=== PATIENT | female | born 1950 | race American Indian/Alaskan Native ===

== ENCOUNTER 2018-07-12 20:00 | Emergency (ER) | payer SELFPAY ==
[2018-07-12 21:36] LABS: Absolute Lymphocytes (CBC) 2.6 K/uL (0.7-4.9); Absolute Monocytes 0.5 K/uL (0.1-1.3); Absolute Neutrophil 3.6 K/uL (1.8-8.0); Basophils % 0.7 % (0-1.3); Eosinophils % 8.8 % (0-4.4); Hematocrit 37.1 % (36.0-45.0); Lymphocytes % 34.7 % (15.3-44.8); MCH 29.9 pg (27.0-35.0); MCV 87.9 fL (80-100); MPV 6.3 fL (7.6-11.3); Monocytes % 7.2 % (3.3-12.3); RBC Red Blood Cell Count 4.22 M/uL (3.86-4.86)
[2018-07-12 21:43] LABS: Protime INR 1.08
[2018-07-12 21:57] LABS: ALT/SGPT 17 U/L (12-78); AST/SGOT 15 U/L (15-37); Albumin 3.9 g/dL (3.4-5.0); Alkaline Phosphatase 115 U/L (45-117); BUN Blood Urea Nitrogen 9 mg/dL (7-18); Bicarbonate 27 mmol/L (21-32); Bilirubin Direct < 0.1 mg/dL (0-0.2); Bilirubin Total 0.3 mg/dL (0.2-1.0); Glucose Level 140 mg/dL (74-106); Magnesium 2.3 mg/dL (1.8-2.4); NT PRO-BNP 115 pg/mL (<125); Potassium 3.7 mmol/L (3.5-5.1); Protein, Total 8.3 g/dL (6.4-8.2); Sodium Level 134 mmol/L (136-145); Troponin (Emerg Dept Use Only) < 0.02 ng/mL (0.0-0.045)
[2018-07-12 22:37] LABS: Urine Appearance CLEAR; Urine Bilirubin NEGATIVE (NEG); Urine Blood NEGATIVE (NEG); Urine Color YELLOW; Urine Glucose NEGATIVE (NEG); Urine Protein NEGATIVE (NEG); Urine Specific Gravity <=1.005 (1.005-1.030); Urine Urobilinogen 0.2 mg/dL (0.2-1.0)
[2018-07-12 22:37] LABS: Urine Blood TRACE (NEG); Urine Glucose NEGATIVE (NEG); Urine Protein NEGATIVE (NEG); Urine Specific Gravity 1.005 (1.005-1.030)
[2018-07-12 22:44] LABS: Urine Microscopic Reflex NO UMIC
--- NOTE | 2018-07-12 23:19 | ER ---
Nurse's Notes [facility] Name: Jannet Driscoll Age: 68 yrs Sex: Female : 1950 Arrival Date: 07/12/2018 Time: 20:03 Bed 20 Private MD: Diagnosis: Weakness Presentation: 07/12 20:09 Presenting complaint: Patient states: headache X2 week, insomnia X2 week. pt took ak1 tylenol PM yesterday and developed blisters in her mouth. Transition of care: patient was not received from another setting of care. No acute neurological deficit is noted. Care prior to arrival: None. 20:09 Method Of Arrival: Wheelchair ak1 20:09 Acuity: ESME 3 ak1 23:33 Onset of symptoms was July 12, 2018. Risk Assessment: Do you want to hurt yourself lp1 or someone else? Patient reports no desire to harm self or others. Initial Sepsis Screen: Does the patient meet any 2 criteria? No. Patient's initial sepsis screen is negative. Does the patient have a suspected source of infection? No. Patient's initial sepsis screen is negative. Historical: - Allergies: 20:13 Tylenol; ak1 - Home Meds: 20:13 amlodipine besylate (bulk) 5mg and 50mg atenolol miscellaneous [Active]; glyciphage ak1 500mg [Active]; lorazepam 1 mg Oral tab [Active]; - PMHx: 20:13 Diabetes - NIDDM; Hypertension; ak1 - PSHx: 20:13 Hysterectomy; ak1 - Immunization history:: Adult Immunizations up to date. - Social history:: Smoking status: Patient/guardian denies using tobacco. - Ebola Screening: : Patient reports travel to an Ebola-affected area in the 21 days before illness onset. Patient reports to have traveled to [place]. Screenin:28 Abuse screen: Denies threats or abuse. Denies injuries from another. Nutritional lp1 screening: No deficits noted. Tuberculosis screening: No symptoms or risk factors identified. Fall Risk Total Mcdermott Fall Scale indicates High Risk Score (45 or more points). Fall prevention measures have been instituted. Side Rails Up X 2 As available patient and family educated on Fall Prevention Program and Strategies. Assessment: 21:03 General: Appears ill, Behavior is quiet. Pain: Complains of pain in head. Neuro: Level lp1 of Consciousness is awake, alert, obeys commands, Oriented to person, place, situation, Pupils are PERRLA, Reports headache weakness generalized. Cardiovascular: Patient's skin is warm and dry. Respiratory: Respiratory effort is even, unlabored, Breath sounds are clear bilaterally. GI: Abdomen is non-distended. : No deficits noted. EENT: Reports blisters in mouth after taking Tylenol PM. Derm: Skin is intact, Skin is dry, Skin is normal. Musculoskeletal: Circulation, motion, and sensation intact. 22:18 Reassessment: Patient assisted to bathroom. lp1 23:34 Reassessment: Patient is alert, oriented x 3, equal unlabored respirations, skin lp1 warm/dry/pink. Patient's family states she may not be sleeping due to stress of family drama and being home sick, patient states she wants to be back in [facility]. Vital Signs: 20:10 BP 170 / 65; Pulse 63; Resp 16; Temp 97.7(TE); Pulse Ox 99% on R/A; Weight 65.77 kg ak1 (R); Height 5 ft. 4 in. (162.56 cm) (R); Pain 5/10; 21:05 BP 151 / 71; Pulse 72; Resp 19; Pulse Ox 100% on R/A; lp1 22:30 BP 124 / 60; Pulse 63; Resp 13; Pulse Ox 99% on R/A; lp1 23:31 BP 120 / 61; Pulse 67; Resp 14; Temp 98.3(O); Pulse Ox 99% on R/A; lp1 20:10 Body Mass Index 24.89 (65.77 kg, 162.56 cm) ak1 ED Course: 20:03 Patient arrived in ED. al2 20:10 Triage completed. ak1 20:13 Arm band placed on Patient placed in an exam room, on a stretcher, Patient notified of ak1 wait time. 20:30 Patient has correct armband on for positive identification. Placed in gown. Bed in low lp1 position. Call light in reach. Side rails up X2. youth nutritional monitor on. Pulse ox on. NIBP on. 20:58 So Yo RN is Primary Nurse. lp1 21:05 Ever Grover MD is Attending Physician. tw4 21:28 Inserted saline lock: 20 gauge in left antecubital area, using aseptic technique. Blood ds4 collected. Missed attempt(s): 20 gauge in right antecubital area. Bleeding controlled, band aid applied, catheter tip intact. 21:29 Basic Metabolic Panel Sent. ds4 21:29 CBC with Diff Sent. ds4 21:30 LFT's Sent. ds4 21:30 Magnesium Sent. ds4 21:30 NT PRO-BNP Sent. ds4 21:30 PT-INR Sent. ds4 21:30 Troponin (emerg Dept Use Only) Sent. ds4 22:26 Urinalysis Sent. ds4 23:33 No provider procedures requiring assistance completed. IV discontinued, No lp1 redness/swelling at site. Pressure dressing applied. Administered Medications: No medications were administered Point of Care Testing: Blood Glucose: 21:27 Blood Glucose: 128 mg/dL; lp1 Ranges: Outcome: 23:18 Discharge ordered by MD. tw4 23:34 Discharged to home via wheelchair, with family. lp1 23:34 Condition: good 23:34 Discharge instructions given to patient, family, Instructed on discharge instructions, follow up and referral plans. medication usage, Demonstrated understanding of instructions, follow-up care, medications, Prescriptions given X 1. 23:44 Patient left the ED. lp1 Signatures: So Yo RN RN lp1 Panda Clark ds4 Cande Guerra, RN RN ak1 Namita Sena Terrence, MD MD tw4 Corrections: (The following items were deleted from the chart) 07/13 00:39 10 23:31 BP 120 / 61; Pulse 67bpm; Resp 14bpm; Pulse Ox 99% RA; lp1 lp1
--- NOTE | 2018-07-12 23:19 | EDPHYS ---
Physician Documentation [facility] Name: Jannet Driscoll Age: 68 yrs Sex: Female : 1950 Arrival Date: 07/12/2018 Time: 20:03 Bed 20 Private MD: ED Physician Ever Grover Historical: - Allergies: 07/12 20:13 Tylenol; ak1 - Home Meds: 20:13 amlodipine besylate (bulk) 5mg and 50mg atenolol miscellaneous [Active]; glyciphage ak1 500mg [Active]; lorazepam 1 mg Oral tab [Active]; - PMHx: 20:13 Diabetes - NIDDM; Hypertension; ak1 - PSHx: 20:13 Hysterectomy; ak1 - Immunization history:: Adult Immunizations up to date. - Social history:: Smoking status: Patient/guardian denies using tobacco. - Ebola Screening: : Patient reports travel to an Ebola-affected area in the 21 days before illness onset. Patient reports to have traveled to [facility]. Vital Signs: 20:10 BP 170 / 65; Pulse 63; Resp 16; Temp 97.7(TE); Pulse Ox 99% on R/A; Weight 65.77 kg ak1 (R); Height 5 ft. 4 in. (162.56 cm) (R); Pain 5/10; 21:05 BP 151 / 71; Pulse 72; Resp 19; Pulse Ox 100% on R/A; lp1 22:30 BP 124 / 60; Pulse 63; Resp 13; Pulse Ox 99% on R/A; lp1 23:31 BP 120 / 61; Pulse 67; Resp 14; Temp 98.3(O); Pulse Ox 99% on R/A; lp1 20:10 Body Mass Index 24.89 (65.77 kg, 162.56 cm) ak1 MDM: 21:05 Patient medically screened. tw4 07/12 21:05 Order name: Basic Metabolic Panel; Complete Time: 22:42 tw4 07/12 22:43 Interpretation: Normal except: NA 134; GFR 83; GLUC 140. tw4 07/12 21:05 Order name: CBC with Diff; Complete Time: 22:42 tw4 07/12 22:43 Interpretation: Normal except: PLT 426; EOSINOPHIL % 8.8; MPV 6.3. tw4 07/12 21:05 Order name: LFT's; Complete Time: 22:42 4 07/12 22:43 Interpretation: Normal except: TP 8.3; GLOB 4.4; A/G 0.9. tw4 07/12 21:05 Order name: Magnesium; Complete Time: 22:42 tw4 07/12 22:43 Interpretation: Within normal limits: MG 2.3. tw4 07/12 21:05 Order name: NT PRO-BNP; Complete Time: 22:42 tw4 07/12 22:43 Interpretation: Within normal limits: NT PRO-BNP 115. tw4 07/12 21:05 Order name: PT-INR; Complete Time: 22:42 tw4 07/12 22:43 Interpretation: Normal except: PT 12.7. tw4 07/12 21:05 Order name: Troponin (emerg Dept Use Only); Complete Time: 22:42 4 07/12 22:43 Interpretation: Within normal limits: TROPED < 0.02. 4 07/12 21:05 Order name: EKG; Complete Time: 21:06 4 07/12 21:05 Order name: Cardiac monitoring; Complete Time: 21:10 4 07/12 21:05 Order name: EKG - Nurse/Tech; Complete Time: 21:07 4 07/12 21:05 Order name: IV Saline Lock; Complete Time: 21:10 tw4 07/12 21:05 Order name: Labs collected and sent; Complete Time: 21:10 4 07/12 21:05 Order name: Urinalysis; Complete Time: 22:48 4 07/12 22:28 Order name: Urine Dipstick--Ancillary (enter results); Complete Time: 22:42 4 07/12 21:05 Order name: O2 Per Protocol; Complete Time: 21:10 4 07/12 21:05 Order name: O2 Sat Monitoring; Complete Time: 21:10 4 07/12 21:05 Order name: Urine Dipstick-Ancillary (obtain specimen); Complete Time: 22:26 tw4 Administered Medications: No medications were administered Point of Care Testing: Blood Glucose: 21:27 Blood Glucose: 128 mg/dL; lp1 Ranges: Critical Glucose Levels:Adult <50 mg/dl or >400 mg/dl <40 mg/dl or >180 mg/dl Disposition: 07/12/18 23:18 Discharged to Home. Impression: Weakness. - Condition is Stable. - Discharge Instructions: Weakness, Fatigue. - Prescriptions for Lunesta 1 mg Oral tablet - take 2 tablet by ORAL route once daily; 10 tablet. - Medication Reconciliation Form, Thank You Letter, Antibiotic Education, Prescription Opioid Use form. - Follow up: Private Physician; When: Upon discharge from the Emergency Department; Reason: Further diagnostic work-up, Recheck today's complaints, Continuance of care. - Problem is new. - Symptoms have improved. Addendum: 08/07/2018 06:50 Addendum: Pt is a 68 year old female that complains of 2 week history headache and t w4 insomia. Pt states that she has been taking Ativan but has had no relief. This was prescribed by her doctor. Pt states that today she developed blisters in her mouth. Pt denies CP, SOB, N/V/D. Addendum: Review of systems: Constitutional: negative for fever, chill, malaise positive for insomnia HEENT: negative for sore throat, vision changes Resp:negative for SOB, wheezing cough CV; negative for CP, DOMINIK, palpitations Abdomen: negative for abdominal pain, nausea vomiting Ext: negative for edema, injury Neuro: positive for headache,negative for numbness weakness. Addendum: Physical exam: Gen: well developed well nourished female in NAD HEENT: PERRLA, EOMI, neck supple Resp: CTAB , nl BS CV: RRR, nl S1 S2 no murmurs or gallops Abdomen: soft ND/NT nl BS Ext: nontender,no edema Neuro: alert oriented times three CN grossly intact strength intact throughout 02/11. Addendum: ED course: pt rested comfortably on the stretcher in the ED. Had no additional complaints. evaluation in Ed negative for cause of patients symptoms. Pt prescribed Lunesta and told ot followup with PMD. Signatures: Dispatcher [employer] EDMS So Yo, RN RN lp1 Cande Guerra RN RN ak1 Ever Grover MD MD tw4 Corrections: (The following items were deleted from the chart) 07/12 23:44 23:18 07/12/2018 23:18 Discharged to Home. Impression: Weakness. Condition is Stable. lp1 Forms are Medication Reconciliation Form, Thank You Letter, Antibiotic Education, Prescription Opioid Use. Follow up: Private Physician; When: Upon discharge from the Emergency Department; Reason: Further diagnostic work-up, Recheck today's complaints, Continuance of care. Problem is new. Symptoms have improved. tw4
--- NOTE | 2018-07-13 16:49 | EKG ---
Test Date: 2018-07-12 Test Time: 20:27:27 Engineering Mathematician: [place] MEASUREMENT RESULTS: Intervals: Rate: 64 MS: 194 QRSD: 76 QT: 482 QTc: 497 [place]: P: 74 MS: 194 QRS: -26 T: 13 INTERPRETIVE STATEMENTS: Normal sinus rhythm Prolonged QT Abnormal ECG No previous ECG available for comparison Electronically Signed On 07-13-18 16:44:51 CDT by Timi Bailey
== END 2018-07-12 23:44 | disposition home or self-care (01) ==
LOC: ER 20:00
DX: R53.1 Weakness (principal); I10 Essential (primary) hypertension; E11.9 Type 2 diabetes mellitus without complications; Z88.6 Allergy status to analgesic agent
CPT/HCPCS: 36415; 80048; 80076; 81003; 82962; 83735; 83880; 84484; 85025; 85610; 93005; 99284

== ENCOUNTER 2018-07-18 03:17 | Emergency (ER) | payer SELFPAY ==
[2018-07-18 04:44] LABS: Protime INR 1.1
[2018-07-18 04:45] LABS: Absolute Lymphocytes (CBC) 2.7 K/uL (0.7-4.9); Absolute Monocytes 0.6 K/uL (0.1-1.3); Absolute Neutrophil 3.7 K/uL (1.8-8.0); Basophils % 0.8 % (0-1.3); Eosinophils % 9.1 % (0-4.4); Hematocrit 35.5 % (36.0-45.0); Lymphocytes % 34.7 % (15.3-44.8); MCH 30.4 pg (27.0-35.0); MCV 86.8 fL (80-100); MPV 6.8 fL (7.6-11.3); Monocytes % 8.1 % (3.3-12.3); RBC Red Blood Cell Count 4.09 M/uL (3.86-4.86)
[2018-07-18 04:58] LABS: ALT/SGPT 18 U/L (12-78); AST/SGOT 15 U/L (15-37); Albumin 3.7 g/dL (3.4-5.0); Alkaline Phosphatase 110 U/L (45-117); BUN Blood Urea Nitrogen 5 mg/dL (7-18); Bicarbonate 24 mmol/L (21-32); Bilirubin Direct 0.1 mg/dL (0-0.2); Bilirubin Total 0.3 mg/dL (0.2-1.0); Glucose Level 150 mg/dL (74-106); NT PRO-BNP 79 pg/mL (<125); Potassium 3.6 mmol/L (3.5-5.1); Protein, Total 7.9 g/dL (6.4-8.2); Sodium Level 132 mmol/L (136-145); Troponin (Emerg Dept Use Only) < 0.02 ng/mL (0.0-0.045)
--- NOTE | 2018-07-18 06:24 | ER ---
Nurse's Notes [facility] Name: Jannet Driscoll Age: 68 yrs Sex: Female : 1950 Arrival Date: 07/18/2018 Time: 03:18 Bed 7 Private MD: Diagnosis: Acute headache. Insomnia. Anxiety disorder Presentation: 07/18 03:32 Presenting complaint: grandson states pt was seen in the ED 07/12 for anxiety she had bb recently stopped her prescription medication lorazepam which she had been taking for 10 years pt was unable to sleep and was given a prescription for Lunesta. Pt here tonight because she has not been able to sleep for several days and was stating "I am going to ". Transition of care: patient was not received from another setting of care. Onset of symptoms was July 18, 2018. Risk Assessment: Do you want to hurt yourself or someone else? Patient reports no desire to harm self or others. Initial Sepsis Screen: Does the patient meet any 2 criteria? No. Patient's initial sepsis screen is negative. Does the patient have a suspected source of infection? No. Patient's initial sepsis screen is negative. Care prior to arrival: None. 03:32 Method Of Arrival: Wheelchair bb 03:32 Acuity: ESME 3 bb Historical: - Allergies: 03:36 Tylenol; bb - Home Meds: 03:36 amlodipine besylate (bulk) 5mg and 50mg atenolol miscellaneous [Active]; glyciphage bb 500mg [Active]; lorazepam 1 mg Oral tab [Active]; - PMHx: 03:36 Diabetes - NIDDM; Hypertension; bb - PSHx: 03:36 Hysterectomy; bb - Immunization history:: Adult Immunizations up to date. - Social history:: Smoking status: Patient/guardian denies using tobacco, Patient/guardian denies using alcohol, street drugs. - Ebola Screening: : No symptoms or risks identified at this time. Screenin:45 Abuse screen: Denies threats or abuse. Denies injuries from another. Nutritional aa1 screening: No deficits noted. Tuberculosis screening: No symptoms or risk factors identified. Fall Risk None identified. Assessment: 03:45 General: Appears in no apparent distress. comfortable, Behavior is calm, cooperative, aa1 appropriate for age. Pain: Denies pain. Neuro: Level of Consciousness is awake, alert, obeys commands, Oriented to person, place, time, situation, Moves all extremities. Speech is normal. Cardiovascular: Heart tones S1 S2 present Rhythm is regular. Respiratory: Airway is patent Respiratory effort is even, unlabored, Respiratory pattern is regular, symmetrical. GI: No signs and/or symptoms were reported involving the gastrointestinal system. : No signs and/or symptoms were reported regarding the genitourinary system. EENT: No signs and/or symptoms were reported regarding the EENT system. Derm: Skin is intact, is healthy with good turgor, Skin is pink, warm \\T\\ dry. Musculoskeletal: Circulation, motion, and sensation intact. Capillary refill < 3 seconds. 04:34 Reassessment: Patient appears in no apparent distress at this time. Patient and/or aa1 family updated on plan of care and expected duration. Pain level reassessed. Patient is alert, oriented x 3, equal unlabored respirations, skin warm/dry/pink. Awaiting test results. 05:37 Reassessment: Patient appears in no apparent distress at this time. Patient and/or aa1 family updated on plan of care and expected duration. Pain level reassessed. Patient is alert, oriented x 3, equal unlabored respirations, skin warm/dry/pink. Awaiting CT results. 06:31 Reassessment: Patient appears in no apparent distress at this time. Patient is alert, aa1 oriented x 3, equal unlabored respirations, skin warm/dry/pink. Discussed d/c \\T\\ f/u instructions with pt; denies questions or concerns at this time Patient denies pain at this time. Patient states feeling better. Vital Signs: 03:36 BP 135 / 70; Pulse 61; Resp 20 S; Temp 97.8(O); Pulse Ox 100% on R/A; Weight 65.77 kg bb (R); Height 5 ft. 4 in. (162.56 cm) (R); 04:34 BP 132 / 67; Pulse 57; Resp 18; Pulse Ox 100% on R/A; Pain 0/10; aa1 05:37 BP 125 / 67; Pulse 60; Resp 16; Pulse Ox 100% on R/A; Pain 0/10; aa1 06:31 BP 100 / 61; Pulse 62; Resp 16; Pulse Ox 100% on R/A; Pain 0/10; aa1 03:36 Body Mass Index 24.89 (65.77 kg, 162.56 cm) bb ED Course: 03:18 Patient arrived in ED. ds1 03:33 Jeffery Stevens MD is Attending Physician. pkl 03:35 Triage completed. bb 03:36 Arm band placed on Patient placed in an exam room, on a stretcher, on pulse oximetry. bb Family accompanied patient. 03:45 Patient has correct armband on for positive identification. Placed in gown. Bed in low aa1 position. Call light in reach. nuclear monitoring technician on. Pulse ox on. NIBP on. Warm blanket given. 04:11 Mariluz Rush, RN is Primary Nurse. aa1 04:30 Initial lab(s) drawn, by ED staff, sent to lab. Inserted saline lock: 20 gauge in left aa1 antecubital area, using aseptic technique. Blood collected. 04:32 Basic Metabolic Panel Sent. ds4 04:32 PT-INR Sent. ds4 04:32 CBC with Diff Sent. ds4 04:32 Troponin (emerg Dept Use Only) Sent. ds4 04:32 LFT's Sent. ds4 04:32 Magnesium Sent. ds4 04:32 NT PRO-BNP Sent. ds4 04:33 EKG done, by ED staff, reviewed by Jeffery Stevens MD. ds4 04:34 X-ray completed. Portable x-ray completed in exam room. Patient tolerated procedure kw well. 04:35 XRAY Chest (1 view) In Process Unspecified. EDMS 05:20 CT Head Brain wo Cont In Process Unspecified. EDMS 05:22 CT completed. Patient tolerated procedure well. Patient moved back from CT. kw1 06:31 No provider procedures requiring assistance completed. IV discontinued, intact, aa1 bleeding controlled, No redness/swelling at site. Pressure dressing applied. Administered Medications: No medications were administered Outcome: 06:24 Discharge ordered by . pkl 06:31 Discharged to home ambulatory, with family. aa1 06:31 Condition: good 06:31 Discharge instructions given to patient, family, Instructed on discharge instructions, follow up and referral plans. medication usage, Demonstrated understanding of instructions, follow-up care, medications, Prescriptions given X 2. 06:32 Patient left the ED. aa1 Signatures: Dispatcher [employer] Mariluz Narvaez RN RN aa1 Jeffery Stevens MD MD pkl [place], Demi ds1 Lupis Zepeda RN RN bb Katie Harp Donovan ds4 Marian Barrios kw1
--- NOTE | 2018-07-18 06:24 | EDPHYS ---
Physician Documentation [facility] Name: Jannet Driscoll Age: 68 yrs Sex: Female : 1950 Arrival Date: 07/18/2018 Time: 03:18 Bed 7 Private MD: ED Physician Jeffery Stevens HPI: 07/18 04:24 This 68 yrs old Other Female presents to ER via Wheelchair with complaints of Anxiety. pkl 04:24 The patient complains of pain to the top of head and forehead. Onset: The pkl symptoms/episode began/occurred 1 week(s) ago, and became worse today. Associated signs and symptoms: Pertinent positives: weakness, unable to sleep for a few days. Historical: - Allergies: 03:36 Tylenol; bb - Home Meds: 03:36 amlodipine besylate (bulk) 5mg and 50mg atenolol miscellaneous [Active]; glyciphage bb 500mg [Active]; lorazepam 1 mg Oral tab [Active]; - PMHx: 03:36 Diabetes - NIDDM; Hypertension; bb - PSHx: 03:36 Hysterectomy; bb - Immunization history:: Adult Immunizations up to date. - Social history:: Smoking status: Patient/guardian denies using tobacco, Patient/guardian denies using alcohol, street drugs. - Ebola Screening: : No symptoms or risks identified at this time. ROS: 04:24 Eyes: Negative for injury, pain, redness, and discharge, ENT: Negative for injury, pkl pain, and discharge, Neck: Negative for injury, pain, and swelling, Cardiovascular: Negative for chest pain, palpitations, and edema, Respiratory: Negative for shortness of breath, cough, wheezing, and pleuritic chest pain, Abdomen/GI: Negative for abdominal pain, nausea, vomiting, diarrhea, and constipation, Back: Negative for injury and pain, : Negative for injury, bleeding, discharge, and swelling, MS/Extremity: Negative for injury and deformity, Skin: Negative for injury, rash, and discoloration. 04:24 Neuro: Positive for headache, weakness. Exam: 04:27 Head/Face: Normocephalic, atraumatic. Eyes: Pupils equal round and reactive to light, pkl extra-ocular motions intact. Lids and lashes normal. Conjunctiva and sclera are non-icteric and not injected. Cornea within normal limits. Periorbital areas with no swelling, redness, or edema. ENT: Nares patent. No nasal discharge, no septal abnormalities noted. Tympanic membranes are normal and external auditory canals are clear. Oropharynx with no redness, swelling, or masses, exudates, or evidence of obstruction, uvula midline. Mucous membranes moist. Neck: Trachea midline, no thyromegaly or masses palpated, and no cervical lymphadenopathy. Supple, full range of motion without nuchal rigidity, or vertebral point tenderness. No Meningismus. Chest/axilla: Normal chest wall appearance and motion. Nontender with no deformity. No lesions are appreciated. Cardiovascular: Regular rate and rhythm with a normal S1 and S2. No gallops, murmurs, or rubs. Normal PMI, no JVD. No pulse deficits. Respiratory: Lungs have equal breath sounds bilaterally, clear to auscultation and percussion. No rales, rhonchi or wheezes noted. No increased work of breathing, no retractions or nasal flaring. Abdomen/GI: Soft, non-tender, with normal bowel sounds. No distension or tympany. No guarding or rebound. No evidence of tenderness throughout. Back: No spinal tenderness. No costovertebral tenderness. Full range of motion. Skin: Warm, dry with normal turgor. Normal color with no rashes, no lesions, and no evidence of cellulitis. MS/ Extremity: Pulses equal, no cyanosis. Neurovascular intact. Full, normal range of motion. 04:27 Neuro: Orientation: appropriate for stated age, Mentation: is normal, Cranial nerves: grossly normal, Motor: moves all fours, Gait: is unsteady. Vital Signs: 03:36 BP 135 / 70; Pulse 61; Resp 20 S; Temp 97.8(O); Pulse Ox 100% on R/A; Weight 65.77 kg bb (R); Height 5 ft. 4 in. (162.56 cm) (R); 04:34 BP 132 / 67; Pulse 57; Resp 18; Pulse Ox 100% on R/A; Pain 0/10; aa1 05:37 BP 125 / 67; Pulse 60; Resp 16; Pulse Ox 100% on R/A; Pain 0/10; aa1 06:31 BP 100 / 61; Pulse 62; Resp 16; Pulse Ox 100% on R/A; Pain 0/10; aa1 03:36 Body Mass Index 24.89 (65.77 kg, 162.56 cm) bb MDM: 03:33 Patient medically screened. pkl 06:22 Data reviewed: vital signs, nurses notes, lab test result(s), EKG, radiologic studies, pkl CT scan, plain films. 07/18 04:05 Order name: Basic Metabolic Panel; Complete Time: 05:12 pkl 07/18 04:05 Order name: CBC with Diff; Complete Time: 05:29 pkl 07/18 04:05 Order name: LFT's; Complete Time: 05:12 pkl 07/18 04:05 Order name: Magnesium; Complete Time: 05:12 pkl 07/18 04:05 Order name: NT PRO-BNP; Complete Time: 05:12 pkl 07/18 04:05 Order name: PT-INR; Complete Time: 06:25 pkl 07/18 04:05 Order name: Troponin (emerg Dept Use Only); Complete Time: 05:12 pkl 07/18 04:05 Order name: XRAY Chest (1 view) pkl 07/18 04:05 Order name: EKG; Complete Time: 04:07 pkl 07/18 04:05 Order name: Cardiac monitoring; Complete Time: 04:33 pkl 07/18 04:05 Order name: EKG - Nurse/Tech; Complete Time: 04:33 pkl 07/18 04:05 Order name: IV Saline Lock; Complete Time: 04:33 pkl 07/18 04:05 Order name: Labs collected and sent; Complete Time: 04:33 pkl 07/18 04:05 Order name: CT Head Brain wo Cont pkl 07/18 04:05 Order name: O2 Per Protocol; Complete Time: 04:33 pkl 07/18 04:05 Order name: O2 Sat Monitoring; Complete Time: 04:33 pkl Administered Medications: No medications were administered Disposition: 07/18/18 06:24 Discharged to Home. Impression: Acute headache. Insomnia. Anxiety disorder. - Condition is Stable. - Medication Reconciliation Form, Thank You Letter, Antibiotic Education, Prescription Opioid Use form. - Follow up: Private Physician; When: 2 - 3 days; Reason: Re-evaluation by your physician. - Problem is new. - Symptoms have improved. Signatures: Dispatcher [employer] EDMS Mariluz Rush RN RN aa1 Jeffery Stevens MD MD pkl Lupis Zepeda RN RN bb Corrections: (The following items were deleted from the chart) 06:32 06:24 07/18/2018 06:24 Discharged to Home. Impression: Acute headache. Insomnia. aa1 Anxiety disorder. Condition is Stable. Forms are Medication Reconciliation Form, Thank You Letter, Antibiotic Education, Prescription Opioid Use. Follow up: Private Physician; When: 2 - 3 days; Reason: Re-evaluation by your physician. Problem is new. Symptoms have improved. pkl
--- NOTE | 2018-07-18 07:33 | EKG ---
Test Date: 2018-07-18 Test Time: 04:25:36 Family Support Coordinator: ORLY MEASUREMENT RESULTS: Intervals: Rate: 58 [place]: 212 QRSD: 76 QT: 500 QTc: 490 [place]: P: 67 WA: 212 QRS: -32 T: 20 INTERPRETIVE STATEMENTS: Sinus bradycardia with 1st degree AV block Left axis deviation Prolonged QT Abnormal ECG Compared to ECG 07/12/2018 20:27:27 First degree AV block now present Left-axis deviation now present Sinus rhythm no longer present Electronically Signed On 07-18-18 07:32:26 CDT by Jason Child
[2018-07-18] MEDS ORDERED: POTASSIUM CL SA 10 MEQ TAB PO ONE (08:01)
--- NOTE | 2018-07-18 09:35 | RAD REPORT ---
EXAM DESCRIPTION: RAD - Chest Single View - 07/18/2018 4:36 am CLINICAL HISTORY: Weakness, shortness of breath COMPARISON: None. TECHNIQUE: AP portable chest image was obtained 0423 hours . FINDINGS: Lungs are clear. Heart and vasculature are normal. No measurable pleural effusion and no p neumothorax. No acute bony abnormality seen. No acute aortic findings suspected. IMPRESSION: No acute cardiopulmonary process.
--- NOTE | 2018-07-18 09:50 | RAD REPORT ---
EXAM DESCRIPTION: CT - Head Brain Wo Cont - 07/18/2018 6:32 am CLINICAL HISTORY: Headache A preliminary report was provided at the time of the study and reviewed prior to final report. COMPARISON: None. TECHNIQUE: Axial 5 mm thick images of the head were obtained without IV contrast. All CT scans are performed using dose optimization technique as appropriate and may include automated exposure control or mA/KV adjustment according to patient size. FINDINGS: No intracranial hemorrhage, mass, edema or shift of mid-line structures. No acute infarcti on changes seen. No cortical edema or sulcal effacement. Mild atrophy and mild chronic ischemic joaquin es are present. Ventricles are within proportion for the amount of volume loss. Arterial and physiolo gic calcifications are present. Mastoid air cells and visualized portions of the paranasal sinuses are clear. No acute bony findings. IMPRESSION: Mild atrophy and chronic ischemic change. No acute findings.
== END 2018-07-18 06:32 | disposition home or self-care (01) ==
LOC: ER 03:17
DX: G47.00 Insomnia, unspecified (principal); F41.9 Anxiety disorder, unspecified; I10 Essential (primary) hypertension; E11.9 Type 2 diabetes mellitus without complications; Z88.6 Allergy status to analgesic agent
CPT/HCPCS: 36415; 70450; 71045; 80048; 80076; 83735; 83880; 84484; 85025; 85610; 93005; 99285